=== PATIENT | male | born 1985 | race Caucasian/White ===

== ENCOUNTER → 2016-09-10 | Outpatient (CLI) | payer BC ==
--- NOTE | 2016-09-10 12:53 | US ---
EXAMINATION TYPE: US scrotum with doppler. DATE OF EXAM: 09/10/2016 12:40 PM COMPARISON: NONE CLINICAL HISTORY: 31-year-old male N50.89 Other spec disorder of male genital organs. Pain in left sc rotal sac x 3 days; prior vasectomy Technique: Multiple sonographic images of the scrotum were obtained. Color Doppler and spectral wavef orm analysis of the testicular arteries and veins. FINDINGS: EXAM MEASUREMENTS: TESTICLES: Right Testicle: 4.5 x 3.1 x 2.1 cm Left Testicle: 4.8 x 2.5 x2.4 cm The testicles are symmetric in appearance and homogeneous in echotexture. No focal lesion is seen. No hyperemia. There is satisfactory arterial and venous flow on both sides. EPIDIDYMIS HEAD: Right Epididymis: 1.2 x 1.6 x 1.4 cm Left Epididymis: 0.9 x 1.2 x 1.0 cm Presence of hydroceles: no Presence of varicoceles: prominent mildly tortuous veins noted in left scrotal sac with neutral A/P measure = 2.7mm (abnormal as >2.5mm). This area is at the patient's site of pain. IMPRESSION: 1. Mild left-sided varicoceles corresponding to the site of patient's pain. 2. No sonographic evidence for testicular torsion or epididymoorchitis.
== END | disposition home or self-care (01) ==
LOC: RADUSWWP 12:08
PROVIDERS: ATTEND Family Medicine
DX: I86.1 Scrotal varices (principal)
CPT/HCPCS: 76870; 93975

== ENCOUNTER → 2021-09-06 | Outpatient (CLI) | payer BC ==
--- NOTE | 2021-09-06 13:16 | MR ---
EXAMINATION TYPE: MR knee LT wo con DATE OF EXAM: 09/06/2021 COMPARISON: None HISTORY: LT KNEE INFERIOR/LATERAL PAIN X2 MONTHS TECHNIQUE: Multiplanar, multisequence imaging of the left knee is performed without IV contrast. FINDINGS: MEDIAL MENISCUS: Anterior and posterior horns are intact without tear. LATERAL MENISCUS: Anterior and posterior horns are intact without tear. CRUCIATE LIGAMENTS: The anterior and posterior cruciate ligaments are intact and unremarkable. COLLATERAL LIGAMENTS: The medial collateral ligament and lateral collateral ligament complex are inta ct and unremarkable. EXTENSOR MECHANISM: Visualized quadriceps and patellar tendons are intact. EFFUSION: No significant suprapatellar joint effusion. POPLITEAL CYST: Haskins's cyst measuring 4.2 cm in length by 1 cm in AP dimension. Additional small ga nglion septated cyst adjacent to the PCL measuring 7.4 mm. TRICOMPARTMENT SPACES: Intact CARTILAGE: Intact BONE MARROW SIGNAL: No focal abnormal marrow signal is appreciated. OTHER: No additional significant abnormality is appreciated. IMPRESSION: Haskins's cyst as noted.
== END | disposition home or self-care (01) ==
LOC: RADMRIMAIN 11:10
PROVIDERS: ATTEND Orthopaedic Surgery
DX: M71.22 Synovial cyst of popliteal space [Baker], left knee (principal)